=== PATIENT | male | born 1965 | race Caucasian/White ===

== ENCOUNTER 2024-11-20 08:55 | Outpatient (AMB) | payer BC, SELFPAY ==
--- NOTE | 2024-11-20 08:52 | A.OFFPC_ITS ---
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 The patient reports that their blood pressures have typically been around 140 mmHg systolic, with highs noted at a dental visit when it reached 180 mmHg but later reduced to 140 mmHg upon retesting. Over the past months, specifically since June, the patient monitored their blood pressure and recorded it as high at home, averaging around 130 mmHg systolic. Additio lalita, the patient fell off their regular walking routine in November after maintaining over 13,000 steps a day from July through October. During this period of increased physical activity, the patient's blood pressure had decreased to approximately 131/82 mmHg but remains above the desired levels. He has not been on medication and has been trying to manage his blood pressure through lifestyle modifications. The patient has a significant family history of cancer, with the patient?s father diagnosed with prostate, bladder, pancreatic cancers, and another unspecified cancer that required skin treatment. The patient also reports skin cancer on their mother's side. The patient denies any current symptoms suggestive of urological issues and regularly follows up with a production illustrator and pharmacy technician per diem for screening. Colonoscopy: follows with [facility] and due in 2027. Does not have a production illustrator PSA overdue Health Maintenance - Discussion on lifestyle modifications for hypertension management, including diet and increased physical activity. - Educational focus on reducing processe d foods, alcohol intake, and ensuring adequate sleep. - Advised on the importance of regular e xercise with a goal to maintain over 46609 steps/day as tolerated. - Reinforcement of blood pressure monito ring at home and guidelines for accurate self-measurement. - Discussion and awareness regarding fam aimee history implications on cancer risks with ongoing regular screenings. - Planned urinalysis to rule out microsc opic hematuria. 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 - Physical activity: The patient had bee [employer] walking regularly with over 13,000 phyllis ps a day but recently reduced activity levels. - Family history: Significant for cancer in immediate family members, including prostate, bladder, pancreas, and skin cancer. - Stress/Anxiety: Reports anxiety relate d to job security and financial stability despite having financial reserves. Review of Systems - Cardiovascular: Reports previous high blood pressure readings; denies current chest pain or shortness of breath. - Respiratory: Denies dyspnea. - Pain: Reports rib contusion from a rec ent fall. - Neurological: Denies dizziness. Physical Exam General: Well developed, well nourished, in no acute distress. Appears stated age. Cardiac: RRR, no murmurs Lungs: clear, equal breath sounds Abdomen: soft, nontender, no CVA tenderness Extremities: no edema Neuro: alert, oriented x3, mood appropriate Plan - The patient will continue lifestyle mo difications focused on diet and exercise for hypertension management, aiming to reduce blood pressure to below 130/80 mmHg. - The patient is advised to perform regu lar home blood pressure monitoring, at least three times a week, with proper positioning. - A follow-up appointment is planned in one month to review blood pressure readings and discuss further management. - Ordered fasting laboratory tests to as sess cholesterol levels, blood sugar, liver, and kidney functions. - Urinalysis to screen for microscopic h ematuria to evaluate for bladder health. - Monitoring for potential pharmacologic al intervention if blood pressure remains uncontrolled with lifestyle changes alone. - Discussed the potential long-term sequ elae of uncontrolled hypertension, emphasizing the use of pharmacotherapy as necessary. - Initiated educational reinforcement re garding genetic risks of cancer and the importance of regular, targeted screenings. 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 Current occupational exposures/hazards: No Cognitive needs: No Hearing needs: Yes Vision needs: Yes (glasses) Physical exam (Primary Care) Vital Signs: Last Vital Signs Pulse 86 11/20/24 09:29 Resp 16 11/20/24 09:29 BP 130/82 11/20/24 09:29 Pulse Ox 97 11/20/24 09:29 Oxygen Delivery Method Room Air 11/20/24 09:29 BMI result Body Mass Index 29.6 Tobacco/Smoking Status: Tobacco use Status Tobacco use date assessed 11/20/24 11/20/24 09:09 Patient Tobacco Use Status Never used Tobacco 11/20/24 09:09 e-Cigarette/Vaping Use Never Used 11/20/24 09:09 Coding Level of Care Code Est Pt Level 4 (53484) Complex EM visit Add On G2211 Diagnoses Prehypertension R03.0 Family hx of prostate cancer Z80.42 Family history of skin cancer Z80.8 Assessment & Plan Assessment & Plan (1) Prehypertension: Code(s): R03.0 - Elevated blood-pressure reading, without diagnosis of hypertension Category: Medical (2) Family hx of prostate cancer: Code(s): Z80.42 - Family history of malignant neoplasm of prostate Category: Medical (3) Family history of skin cancer: Code(s): Z80.8 - Family history of malignant neoplasm of other organs or systems Category: Medical Plan . Orders: Orders Comprehensive Edwards. Panel Fast Today R03.0 - Elevated blood-pressure reading, without diagnosis of hypertension, Z80.42 - Family history of malignant neoplasm of prostate Hemoglobin A1c Today R03.0 - Elevated blood-pressure reading, without diagnosis of hypertension, R73.01 - Impaired fasting glucose, Z80.42 - Family history of malignant neoplasm of prostate UA CC w/rflx Micro + Cult Today R03.0 - Elevated blood-pressure reading, without diagnosis of hypertension, Z13.220 - Encounter for screening for lipoid disorders, Z80.42 - Family history of malignant neoplasm of prostate Complete Blood Count Auto Diff Today R03.0 - Elevated blood-pressure reading, without diagnosis of hypertension, Z80.42 - Family history of malignant neoplasm of prostate TSH reflex Free T4 Today R03.0 - Elevated blood-pressure reading, without diagnosis of hypertension, Z80.42 - Family history of malignant neoplasm of prostate Prostate Specific Antigen Scr Today R03.0 - Elevated blood-pressure reading, without diagnosis of hypertension, Z01.89 - Encounter for other specified special examinations, Z80.42 - Family history of malignant neoplasm of prostate Lipid Panel Today R03.0 - Elevated blood-pressure reading, without diagnosis of hypertension, Z80.42 - Family history of malignant neoplasm of prostate Referrals Dermatology Referral Z80.8 - Family history of malignant neoplasm of other organs or systems
[2024-11-20 09:29] VITALS: BP 130/82; PULSE 86; RESP 16; O2SAT 97; BMI 29.6
== END 2024-11-20 09:51 | disposition home or self-care (01) ==
PROVIDERS: PCP Physician Assistant; Visit Provider Physician Assistant
DX: R03.0 Elevated blood-pressure reading, without diagnosis of hypertension (principal); Z80.42 Family history of malignant neoplasm of prostate; Z80.8 Family history of malignant neoplasm of other organs or systems

== ENCOUNTER → 2024-11-20 08:55 | Outpatient (BNVA) | payer OTHER, SELFPAY | PROVIDERS: PCP Physician Assistant; Visit Provider Physician Assistant ==

== ENCOUNTER 2024-12-11 07:53 | Outpatient (REF) | payer OTHER, SELFPAY ==
[2024-12-11 11:35] LABS: Appearance Urine Turbid; Color Urine Yellow; Glucose Urine UA Negative (Negative); Leukocyte Esterase Urine Negative (Negative); Nitrite Urine Negative (Negative); Specific Gravity - Urine 1.025 (1.005-1.025); Urine Blood Negative (Negative); Urine Ketones Negative (Negative); Urine Protein Negative (Neg-Trace)
[2024-12-11 11:57] LABS: MANUAL DIFF FLAG NO
[2024-12-11 12:02] LABS: Basophils Percent Auto 0.3 % (0-2); Eosinophils Percent Auto 0.7 % (0-4); Hematocrit 44.1 % (42.0-52.0); Hemoglobin 14.9 g/dl (14.0-18.0); Imm Gran Abs Auto 0.01 X10*3/uL (0.00-0.03); Imm Gran Pct Auto 0.2 % (0.0-0.4); Lymphocytes Absolute Auto 1.7 X10*3/uL (1.2-4.9); Mean Corpuscular HGB Conc 33.8 g/dl (31.0-36.0); Mean Corpuscular Volume 85.8 fL (80.0-98.0); Mean Platelet Volume 10.2 fL (9.4-12.4); Monocytes Absolute Auto 0.4 X10*3/uL (0.1-1.2); Monocytes Percent Auto 7.1 % (2-11); Neutrophils Absolute Auto 3.6 x10*3/uL (2.0-8.3); Neutrophils Percent Auto 61.7 % (45-73); Platelet Count 247 X10*3/uL (160-400); Red Blood Count 5.14 X10*6/uL (4.60-5.80); Red Cell Distribution Width 13.2 % (11.0-16.0); White Blood Count 5.8 X10*3/uL (4.8-10.8)
[2024-12-11 12:33] LABS: Estimated Average Glucose 103 mg/dL; Hemoglobin A1C 130.1379 umol/L; Hemoglobin A1c % 5.2 % (<6.0); Total Hemoglobin (HGBA1C) 3851.6469 umol/L
[2024-12-11 12:50] LABS: Alanine Aminotransferase 25 U/L (0-40); Albumin Level 4.5 g/dL (3.5-5.0); Alkaline Phosphatase 68 U/L (39-117); Anion Gap 11 (12-20); Aspartate Amino Transferase 28 U/L (5-37); Bilirubin Total 2.5 mg/dL (0.0-1.0); Blood Urea Nitrogen 18 mg/dL (9-16); Calcium 9.4 mg/dL (8.4-10.2); Carbon Dioxide 26 mmol/L (22-29); Chloride 108 mmol/L (96-108); Cholesterol 173 mg/dL (<200); Estimated Glomerular Filt Rate > 60; Glucose Fasting 90 mg/dL (60-99); HDL Cholesterol 49 mg/dL (>40); LDL Cholesterol Calculated 107 mg/dL (<100); Potassium 4.2 mmol/L (3.3-5.1); Sodium 141 mmol/L (135-145); TSH reflex Free T4 1.17 uIU/mL (0.32-4.0); Total Protein 7.5 g/dL (6.5-8.0); Triglycerides 85 mg/dL (<150)
[2024-12-11 13:06] LABS: Prostate Specific Antigen Scr 1.65 ng/mL (<0.05-4.0)
== END 2024-12-11 07:54 | disposition home or self-care (01) ==
LOC: HO.WFDLDS 07:53
PROVIDERS: Visit Provider Physician Assistant
DX: R03.0 Elevated blood-pressure reading, without diagnosis of hypertension (principal); R73.01 Impaired fasting glucose; Z80.42 Family history of malignant neoplasm of prostate; Z13.220 Encounter for screening for lipoid disorders; Z01.89 Encounter for other specified special examinations; Z12.5 Encounter for screening for malignant neoplasm of prostate; Z13.6 Encounter for screening for cardiovascular disorders
CPT/HCPCS: 36415; 80053; 80061; 81003; 83036; 84153; 84443; 85025

== ENCOUNTER 2024-12-19 09:31 | Outpatient (AMB) | payer OTHER, SELFPAY ==
--- NOTE | 2024-12-19 09:44 | A.OFFPC_ITS ---
Vital Signs 12/19/24 09:46 Height 6 ft 0.44 in Weight 212 lb 4 oz BMI 28.4 BP 120/76 Blood Pressure Location Lt brachial Position Sitting Respiration 14 Pulse 65 Pulse Source Pulse Oximeter Pulse Oximetry (%) 99 Oxygen Delivery Method Room Air Intake Visit Reasons: bp check Intake Note: Blood pressure follow up Allergies No Known Allergies Allergy (Verified 12/19/24 09:46) Tobacco use date assessed: 11/20/24 Dental Screening Dental Screen Date: 11/20/24 HPI bp check HPI Details The patient is a 59-year-old male presenting with a follow-up visit for his hx of prehypertension. He has been monitoring blood pressures at home and over the last couple weeks they have been normal around 120/70. Prior to that they were about 140/80. Denies any chest pain or shortness on breath. Recently had labs which showed an elevated bilirubin. He states that he does have a history of this but it has never been this high. When compared to the bilirubin at [facility] the total was 1.5. He did have a liver ultrasound at that time which was normal. This was in 2023. Family history: The patient has a significant family history of cancer, with the patient?s father diagnosed with prostate, bladder, pancreatic cancers, and another unspecified cancer that required skin treatment. The patient also reports skin cancer on their mother's side. The patient denies any current symptoms suggestive of urological issues and regularly follows up with a supervisor travel information center and neurology hospitalist for screening. Colonoscopy: follows with [facility] and due in 2027. derm: was referred to Dermatology PSA Up-to-date [facility] Surgical History (Updated 11/20/24 @ 09:04 by Anastasiia Hastings CMA) History of tonsillectomy Family History (Updated 11/20/24 @ 09:06 by Anastasiia Hastings CMA) Father Pancreatic cancer Prostate cancer Bladder cancer Skin cancer Mother Skin cancer Maternal Aunt Skin cancer Social History (Updated 11/20/24 @ 09:06 by Anastasiia Hastings CMA) Housing: House Alcohol intake: current Patient Tobacco Use Status: Never used Tobacco e-Cigarette/Vaping Use: Never Used Second Hand Smoke Exposure: No service: No Current occupational status: employed 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 Current occupational exposures/hazards: No Cognitive needs: No Hearing needs: Yes Vision needs: Yes (glasses) Questionnaire Thrive Questionnaire Date Thrive assessed: 11/20/24 I am a: Patient What is your living situation today?: I have a steady place to live Within the past 12 months, did the food you bought not last and you didn't have the money to get more?: Never true Within the past 12 months, did you worry whether your food would run out before you got money to buy more?: Never true Do you have trouble paying for medicines?: No Do you have trouble getting transportation to medical appointments?: No Do you have trouble paying your heating and electricity bill?: No Do you have trouble taking care of your child, family member or friend?: No Do you have trouble with day-to-day activities such as bathing, preparing meals, shopping, managing finances, etc.?: No Are you currently unemployed and looking for a job?: No Are you interested in more education?: Yes Please select the resources that you would like help with: None Currently or been in a relationship where the following occur: No concerns reported THRIVE Score: 0 Physical exam (Primary Care) Vital Signs: Last Vital Signs Pulse 65 12/19/24 09:46 Resp 14 12/19/24 09:46 BP 120/76 12/19/24 09:46 Pulse Ox 99 12/19/24 09:46 Oxygen Delivery Method Room Air 12/19/24 09:46 BMI result Body Mass Index 28.4 Tobacco/Smoking Status: Tobacco use Status Tobacco use date assessed 11/20/24 12/19/24 09:49 Patient Tobacco Use Status Never used Tobacco 12/19/24 09:49 e-Cigarette/Vaping Use Never Used 12/19/24 09:49 Thrive Assessment: Date of Thrive Assessment Date Thrive assessed 11/20/24 12/19/24 09:49 Currently or been in a relationship where the following occur: No concerns reported Const Orientation/consciousness: patient oriented x3 HENMT Ears: hearing grossly normal bilaterally Neck Thyroid: Thyroid normal Lymphatic: no lymphadenopathy noted Resp Auscultation: clear to auscultation bilaterally Cardio Rate: regular rate Rhythm: regular rhythm Heart sounds: S1 normal heart sound present and S2 normal heart sound present GI Inspection: Yes normal to inspection Palpation (GI): Soft to palpation and Other GI palpation findings present (nontender, no cva tenderness) Auscultation: normoactive bowel sounds Rectal Exam - Male: Yes deferred Skin General skin exam: no rashes or lesions noted Neuro General: patient oriented x3, gait normal and no focal motor deficits Coding Level of Care Code Est Pt Level 4 (89416) Complex EM visit Add On G2211 Diagnoses Elevated bilirubin R17 Prehypertension R03.0 Assessment & Plan Assessment & Plan (1) Elevated bilirubin: Code(s): R17 - Unspecified jaundice Category: Medical Plan: Ultrasound is scheduled for Monday. Advised patient to repeat his liver tests and we will follow up pending test results (2) Prehypertension: Code(s): R03.0 - Elevated blood-pressure reading, without diagnosis of hypertension Category: Medical Plan: WNL today. He has lost some weight. Encouraged him to continue with a healthy lifestyle modifications. We will closely monitor
[2024-12-19 09:46] VITALS: BP 120/76; PULSE 65; RESP 14; O2SAT 99; BMI 28.4
== END 2024-12-19 10:14 | disposition home or self-care (01) ==
LOC: HO.HMCFM 09:32
PROVIDERS: PCP Physician Assistant; Visit Provider Physician Assistant
DX: R17 Unspecified jaundice (principal); R03.0 Elevated blood-pressure reading, without diagnosis of hypertension

== ENCOUNTER 2024-12-19 10:38 | Outpatient (REF) | payer OTHER, SELFPAY ==
[2024-12-19 14:47] LABS: Alanine Aminotransferase 23 U/L (0-40); Albumin Level 4.5 g/dL (3.5-5.0); Alkaline Phosphatase 69 U/L (39-117); Aspartate Amino Transferase 24 U/L (5-37); Bilirubin Direct 0.5 mg/dL (0.0-0.5); Bilirubin Total 1.6 mg/dL (0.0-1.0); Total Protein 7.4 g/dL (6.5-8.0)
== END 2024-12-19 10:39 | disposition home or self-care (01) ==
LOC: HO.WFDLDS 10:38
PROVIDERS: Visit Provider Physician Assistant
DX: R17 Unspecified jaundice (principal)
CPT/HCPCS: 36415; 80076

== ENCOUNTER 2025-06-25 08:15 | Outpatient (AMB) | payer OTHER, SELFPAY ==
--- NOTE | 2025-06-25 08:21 | MHC.PC.OV ---
Vital Signs 06/25/25 08:22 06/25/25 08:30 Height 6 ft 0.44 in Weight 222 lb 2 oz BMI 29.8 BP 144/86 H 126/74 Blood Pressure Location Lt brachial Lt brachial Position Sitting Sitting Respiration 14 Pulse 61 Pulse Source Pulse Oximeter Pulse Oximetry (%) 99 Oxygen Delivery Method Room Air Intake Visit Reasons: bp Allergies No Known Allergies Allergy (Verified 06/25/25 08:22) Medication List - Last Reconciled 06/25/25 by Melania Marrero PA-C lactase (Lactaid) . Tobacco use date assessed: 06/25/25 Dental Screening Dental Screen Date: 11/20/24 HPI bp HPI Details The patient is a 59-year-old male presenting with a follow-up visit for his hx of prehypertension. He has not been monitoring blood pressures at home. He states he has been feeling pretty good and yesterday at the dentist his blood pressure was 122/81. Today initially in the office is 144/86 and repeat is 126/74. He states that his diet and exercise has not been as good as it previously was but he has had some increased work stressors. He states in the next few weeks his stressors we will improve and he will be able to start committing to a healthier lifestyle.. Denies any chest pain or shortness on breath. Recently had labs which showed an elevated bilirubin. He does have a history of this. He did have a liver ultrasound at that time which was normal. This was in 2023. Family history: The patient has a significant family history of cancer, with the patient?s father diagnosed with prostate, bladder, pancreatic cancers, and another unspecified cancer that required skin treatment. The patient also reports skin cancer on their mother's side. The patient denies any current symptoms suggestive of urological issues and regularly follows up with a steel shot header operator and orchard pruner for screening. Colonoscopy: follows with [facility] and due in 2027. derm: was referred to Dermatology and has been following with Dermatology PSA Up-to-date [facility] Surgical History (Updated 11/20/24 @ 09:04 by Anastasiia Hastings CMA) History of tonsillectomy Family History (Updated 11/20/24 @ 09:06 by Anastasiia Hastings CMA) Father Pancreatic cancer Prostate cancer Bladder cancer Skin cancer Mother Skin cancer Maternal Aunt Skin cancer Social History (Updated 11/20/24 @ 09:06 by GARY [place] Housing: House Alcohol intake: current Patient Tobacco Use Status: Never used Tobacco e-Cigarette/Vaping Use: Never Used Second Hand Smoke Exposure: No service: No Current occupational status: employed 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 Current occupational exposures/hazards: No Cognitive needs: No Hearing needs: Yes Vision needs: Yes (glasses) Questionnaire Thrive Questionnaire Date Thrive assessed: 11/20/24 I am a: Patient What is your living situation today?: I have a steady place to live Within the past 12 months, did the food you bought not last and you didn't have the money to get more?: Never true Within the past 12 months, did you worry whether your food would run out before you got money to buy more?: Never true Do you have trouble paying for medicines?: No Do you have trouble getting transportation to medical appointments?: No Do you have trouble paying your heating and electricity bill?: No Do you have trouble taking care of your child, family member or friend?: No Do you have trouble with day-to-day activities such as bathing, preparing meals, shopping, managing finances, etc.?: No Are you currently unemployed and looking for a job?: No Are you interested in more education?: Yes Please select the resources that you would like help with: None Currently or been in a relationship where the following occur: No concerns reported THRIVE Score: 0 AUDIT C Alcohol Use Questionnaire (AUDIT-C) 1. How often do you have a drink containing alcohol?: Monthly or less 2. How many drinks containing alcohol do you have on a typical day when you are drinking?: 5 or 6 3. How often do you have six or more drinks on one occasion?: Never Total Score: 3 Physical exam (Primary Care) Tobacco/Smoking Status: Tobacco use Status Tobacco use date assessed 11/20/24 12/19/24 09:49 Patient Tobacco Use Status Never used Tobacco 12/19/24 09:49 e-Cigarette/Vaping Use Never Used 12/19/24 09:49 Thrive Assessment: Date of Thrive Assessment Date Thrive assessed 11/20/24 12/19/24 09:49 Currently or been in a relationship where the following occur: No concerns reported Const Orientation/consciousness: patient oriented x3 HENMT Ears: hearing grossly normal bilaterally Neck Thyroid: Thyroid normal Lymphatic: no lymphadenopathy noted Resp Auscultation: clear to auscultation bilaterally Cardio Rate: regular rate Rhythm: regular rhythm Heart sounds: S1 normal heart sound present and S2 normal heart sound present GI Inspection: Yes normal to inspection Palpation (GI): Soft to palpation and Other GI palpation findings present (nontender, no cva tenderness) Auscultation: normoactive bowel sounds Rectal Exam - Male: Yes deferred Skin General skin exam: no rashes or lesions noted Neuro General: patient oriented x3, gait normal and no focal motor deficits Results Reviewed Results Reviewed: Laboratory Tests 12/11/24 12/11/24 12/19/24 07:54 08:03 10:40 WBC 5.8 RBC 5.14 Hgb 14.9 Hct 44.1 Plt Count 247 Sodium 141 Potassium 4.2 Chloride 108 Carbon Dioxide 26 Anion Gap 11 L BUN 18 H Creatinine 0.99 Estimated GFR > 60 Fasting Glucose 90 Estimat Average Glucose 103 Hemoglobin A1c % 5.2 Total Bilirubin 2.5 H 1.6 H Direct Bilirubin 0.5 AST 28 24 ALT 25 23 Alkaline Phosphatase 68 69 Total Protein 7.5 7.4 Albumin 4.5 4.5 Triglycerides 85 Cholesterol 173 LDL Cholesterol, Calc 107 H HDL Cholesterol 49 PSA Screen 1.65 TSH 1.17 Urine Color Yellow Urine Appearance Turbid Urine pH 6.0 Ur Specific [place] 1.025 Urine Protein Negative Urine Glucose (UA) Negative Urine Ketones Negative Urine Blood Negative Urine Nitrite Negative Ur Leukocyte Esterase Negative Coding Level of Care Code Est Pt Level 4 (94504) Complex EM visit Add On G2211 Diagnoses Prehypertension R03.0 Elevated bilirubin R17 Assessment & Plan Assessment & Plan (1) Prehypertension: Code(s): R03.0 - Elevated blood-pressure reading, without diagnosis of hypertension Category: Medical Plan: We will continue to monitor. Follow up for a physical in 6 months. Encouraged healthy diet and lifestyle modifications (2) Elevated bilirubin: Code(s): R17 - Unspecified jaundice Category: Medical Plan: We will monitor labs Orders: Orders Liver Panel Today R03.0 - Elevated blood-pressure reading, without diagnosis of hypertension, R17 - Unspecified jaundice Complete Blood Count Auto Diff Today R03.0 - Elevated blood-pressure reading, without diagnosis of hypertension, R17 - Unspecified jaundice Basic Metabolic Panel Today R03.0 - Elevated blood-pressure reading, without diagnosis of hypertension, R17 - Unspecified jaundice TSH reflex Free T4 Today R03.0 - Elevated blood-pressure reading, without diagnosis of hypertension, R17 - Unspecified jaundice
[2025-06-25 08:22] VITALS: BP 144/86; PULSE 61; RESP 14; O2SAT 99; BMI 29.8
[2025-06-25 08:30] VITALS: BP 126/74
--- OUTSIDE RECORDS SUMMARY | 2025-06-25 09:12 | XMS_ITS | Encounter Summary ---
Author Organization [facility] Address [address] [place] [address] Phone Care Team Providers Care Guidance Counselor Name Role Phone Franci Donaldson MD Primary Care Provid er Unknown, Unknown Primary Care Provider Padmini guardado Encounter Details Date Type Department Care Team (Latest Contact Info) Description 08/17/2018 Transcribe Orders [facility] [address] [address] Laura Booker PA-C [address], [address] [place] [address] [email or web address] Rectal bleeding (Primary Dx) Social History Tobacco Use Types Packs/Day Years Used Date Smoking Tobacco: Never Assessed Sex and Gender Information Value Date Recorded Sex Assigned at Not on file Legal Sex Male 9:40 PM EDT Gender Identity Not on file Sexual Orientation Not on file documented as of this encounter Plan of Treatment Not on file documented as of this encounter Results * Comprehensive metabolic panel (08/17/2018 10:12 AM EST) SODIUM 141 133 - 146 mmol/L [facility] POTASSIUM 4.3 3.3 - 5.1 mmol/L [facility] CHLORIDE 104 96 - 108 mmol/L [facility] CO2 26 21 - 35 mmol/L [facility] BUN 16 6 - 19 mg/dL [facility] CREATININE 0.90 0.5 - 1.5 mg/dL [facility] GLUCOSE 95 70 - 99 mg/dL [facility] ALBUMIN 4.4 3.9 - 4.8 g/dL [facility] TOTAL PROTEIN 7.0 6.5 - 8.0 g/dL [facility] CALCIUM 9.0 8.4 - 10.3 mg/dL [facility] ALKALINE PHOSPHATASE 69 39 - 117 U/L [facility] TOTAL BILIRUBIN 0.7 0.0 - 1.2 mg/dL [facility] AST 21 0 - 37 U/L [facility] ALT 25 0 - 40 U/L [facility] GLOBULIN 2.6 1 - 4.8 g/dL [facility] EGFR 98 >59 mL/min/1.7 3m2 [facility] Comment:If patient is black, multiply result by 1.159. Estimated glomerular filtration rate calculated using the CKD-EPI equation. ANION GAP 15 10 - 20 mmol/L [facility] Blood 08/17/2018 10:1 2 AM EST 08/17/2018 10:20 AM EST us Laura Booker PA-C LAB BLOOD ORDERABLES Final Resu lt [facility] [address] [place] [address] * CBC (08/17/2018 10:12 AM EST) WBC 6.30 3.40 - 11.20 K/uL [facility] RBC 4.76 4.50 - 5.50 M/uL [facility] HGB 13.7 13.0 - 17.0 g/dL [facility] HCT 40.8 40.0 - 51.0 % [facility] PLT 242 130 - 400 K/uL [facility] MCV 85.7 79.0 - 98.0 [facility] MCH 28.8 27.0 - 34.8 pg [facility] MCHC 33.6 31.5 - 36.0 g/dL [facility] RDW 12.8 10.8 - 14.6 % [facility] MPV 10.1 9.4 - 12.4 fl [facility] NRBC 0.00 0.00 /100 WBCs [facility] ABSOLUTE NRBC 0.00 0.00 K/uL [facility] Blood 08/17/2018 10:1 2 AM EST 08/17/2018 10:20 AM EST us Laura Booker PA-C LAB BLOOD ORDERABLES Final Resu lt [facility] [address] [place] [address] documented in this encounter Visit Diagnoses Diagnosis Rectal bleeding- Primary Hemorrhage of rectum and anus documented in this encounter Care Teams Guidance Counselor Relationship Specialty Start Date End Date Franci Donaldson MD [address] [address] PCP - General Internal Medicine 08/17/18 04/28/22 Unknown, Unknown, PCP - General 04/29/22 documented as of this encounter Additional Source Comments The information contained in this document represents components of the legal health record. It is not the complete legal health record.[facility]
--- OUTSIDE RECORDS SUMMARY | 2025-06-25 09:12 | XMS_ITS | Clinical Summary ---
Author Organization [facility] Address [address] [address] Phone Care Team Providers Care Signal Processing Engineer Name Role Phone Unknown, Unknown Primary Care Provider Padmini guardado Social History Tobacco Use Types Packs/Day Years Used Date Smoking Tobacco: Never Assessed Education Answer Date Recorded Are you interested in more education? Not on [place] e 02/03/2023 Are you concerned about learning? Not on file 02/03/2023 No 02/03/2023 No 02/03/2023 Digital Access Answer Date Recorded No 03/06/2023 No 03/06/2023 No 03/06/2023 Reliable internet access at home? Not on file 03/06/2023 Device with a working camera? Not on file Sex and Gender Information Value Date Recorded Sex Assigned at Not on file Legal Sex Male 9:40 PM EDT Gender Identity Not on file Sexual Orientation Not on file Plan of Treatment Not on file Medical Devices Not on file Insurance [facility], [facility], [facility], [facility], [place] [facility] [place] [facility] P[facility] [employer] Care Teams Signal Processing Engineer Relationship Specialty Start Date End Date Unknown, Unknown, PCP - General 04/29/22 Additional Source Comments The information contained in this document represents components of the legal health record. It is not the complete legal health record.[facility]
--- OUTSIDE RECORDS SUMMARY | 2025-06-25 09:12 | XMS_ITS | Encounter Summary ---
Author Organization [facility] Address [address] [facility] [address] [place] [address] Phone Care Team Providers Care Sheet Rock Installer Name Role Phone Franci Donaldson MD Primary Care Provid er Unknown, Unknown Primary Care Provider Padmini guardado Encounter Details Date Type Department Care Team (Latest Contact Info) Description 11/03/2021 Transcribe Orders Virtual Department [address] [place] [address] Laura Booker PA-C [address], [address] [place] [address] RUQ abdominal pain (Primary Dx) Social History Tobacco Use Types Packs/Day Years Used Date Smoking Tobacco: Never Assessed Sex and Gender Information Value Date Recorded Sex Assigned at Not on file Legal Sex Male 9:40 PM EDT Gender Identity Not on file Sexual Orientation Not on file documented as of this encounter Plan of Treatment Not on file documented as of this encounter Results * US ABDOMEN LIMITED RIGHT UPPER QUADRANT (12/06/2021 7:49 AM EST) Anatomical Region Laterality Modality Abdomen Ultrasound 12/06/2021 8:00 AM EST Impressions 12/06/2021 8:12 AM EST Limited. 1.No acute findings. 2.Hepatic steatosis. Narrative 12/06/2021 8:12 AM EST COMPARISON: CT abdomen 04/23/2007. LIMITED ABDOMEN ULTRASOUND FINDINGS: *Limited by body habitus.* Liver: Diffusely echogenic. No focal lesions. Gallbladder: Normal. Common bile duct: Normal-4 mm. Pancreas: Limited. Imaged pancreas is normal. The pancreatic tail is obscured by bowel gas. Right Kidney: No hydronephrosis. Proximal abdominal aorta/IVC/Main Portal Vein: Limited. Unremarkable. Procedure Note Oscar Burrell MD - 12/06/2021 COMPARISON: CT abdomen 04/23/2007. LIMITED ABDOMEN ULTRASOUND FINDINGS: *Limited by body habitus.* Liver: Diffusely echogenic. No focal lesions. Gallbladder: Normal. Common bile duct: Normal-4 mm. Pancreas: Limited. Imaged pancreas is normal. The pancreatic tail isobscured by bowel gas. Right Kidney: No hydronephrosis. Proximal abdominal aorta/IVC/Main Portal Vein: Limited. Unremarkable. IMPRESSION: Limited. 1.No acute findings. 2.Hepatic steatosis. us Laura Booker PA-C IMG US ABDOMEN Final Result documented in this encounter Visit Diagnoses Diagnosis RUQ abdominal pain- Primary Abdominal pain, right upper quadrant RUQ abdominal pain Abdominal pain, right upper quadrant documented in this encounter Care Teams Sheet Rock Installer Relationship Specialty Start Date End Date Franci Donalds[facility] [address] PCP - General Internal Medicine 08/17/18 04/28/22 Unknown, Unknown, PCP - General 04/29/22 documented as of this encounter Additional Source Comments The information contained in this document represents components of the legal health record. It is not the complete legal health record.[facility]
== END 2025-06-25 08:48 | disposition home or self-care (01) ==
LOC: HO.HMCFM 08:16
PROVIDERS: PCP Physician Assistant; Visit Provider Physician Assistant
DX: R03.0 Elevated blood-pressure reading, without diagnosis of hypertension (principal); R17 Unspecified jaundice

== ENCOUNTER 2025-06-25 08:15 | Outpatient (REF) | payer OTHER, SELFPAY ==
[2025-06-25 11:17] LABS: MANUAL DIFF FLAG NO
[2025-06-25 11:19] LABS: Hematocrit 43.2 % (42.0-52.0); Hemoglobin 14.6 g/dl (14.0-18.0); Imm Gran Abs Auto 0.01 X10*3/uL (0.00-0.03); Imm Gran Pct Auto 0.2 % (0.0-0.4); Lymphocytes Absolute Auto 1.9 X10*3/uL (1.2-4.9); Mean Corpuscular HGB Conc 33.8 g/dl (31.0-36.0); Mean Corpuscular Hemoglobin 28.9 pg (27.0-33.0); Mean Corpuscular Volume 85.5 fL (80.0-98.0); NRBC Abs Auto 0.000 X10*3/uL (0.0-0.012); NRBC Pct Auto 0.0 /100WBC (0.0-0.2); Platelet Count 221 X10*3/uL (160-400); Red Blood Count 5.05 X10*6/uL (4.60-5.80); White Blood Count 6.3 X10*3/uL (4.8-10.8)
[2025-06-25 11:47] LABS: Alanine Aminotransferase 22 U/L (0-40); Albumin Level 4.7 g/dL (3.5-5.0); Alkaline Phosphatase 75 U/L (39-117); Anion Gap 9 (12-20); Aspartate Amino Transferase 22 U/L (5-37); Blood Urea Nitrogen 18 mg/dL (9-16); Calcium 9.3 mg/dL (8.4-10.2); Carbon Dioxide 29 mmol/L (22-29); Chloride 108 mmol/L (96-108); Estimated Glomerular Filt Rate > 60; Potassium 4.3 mmol/L (3.3-5.1); Sodium 142 mmol/L (135-145); Total Protein 6.9 g/dL (6.5-8.0)
== END 2025-06-25 08:16 | disposition home or self-care (01) ==
LOC: HO.WFDLDS 08:15
PROVIDERS: PCP Physician Assistant; Visit Provider Physician Assistant
DX: R03.0 Elevated blood-pressure reading, without diagnosis of hypertension (principal); R17 Unspecified jaundice
CPT/HCPCS: 36415; 80048; 80076; 84443; 85025